=== PATIENT | male | born 1990 | race Two or more races ===

== ENCOUNTER 2023-10-30 14:12 | Outpatient (CLI) | payer BC | END 2023-10-30 23:59 | disposition home or self-care (01) | LOC: MRI 14:12 | PROVIDERS: ATTEND Pediatrics Sports Medicine | DX: S93.692A Other sprain of left foot, initial encounter (principal); S91.312A Laceration without foreign body, left foot, initial encounter; M79.672 Pain in left foot; X58.XXXA Exposure to other specified factors, initial encounter; Y93.89 Activity, other specified; Y92.89 Other specified places as the place of occurrence of the external cause; Y99.8 Other external cause status | CPT/HCPCS: 73721 ==